=== PATIENT | male | born 1945 ===

== ENCOUNTER 2024-01-11 13:57 | Observation (INO) | payer BC ==
[2024-01-11] VITALS (11 sets, daily range): BP systolic 158–216; BP diastolic 46–108; PULSE 65–78; TEMP 97.9
[~2024-01-11] VITALS: Ht 177.8 cm; Wt 102.4 kg
[~2024-01-11 13:57] MED LIST: LR 1,000 ML IV SCH
[2024-01-11] MEDS ORDERED: LASIX 20MG TABL20 MG PO (15:44)
[2024-01-11] MEDS ORDERED: LIPITOR 40MG TA40 MG PO (15:46)
[2024-01-11] MEDS ORDERED: COREG 6.256.25 MG/TA PO (15:47)
[2024-01-11] MEDS ORDERED: FLOMAX 0.40.4 MG/CAP PO (15:48)
[2024-01-11] MEDS ORDERED: COZAAR100 MG PO (15:49)
[2024-01-11] MEDS ORDERED: ASPIRIN 81M81 MG/TA2 PO (15:52)
[2024-01-11] MEDS ORDERED: THE MEDICINE S200 M2 PO (15:53)
[2024-01-11] MEDS ORDERED: TYLENOL PM EXTR1 TA1 PO (15:54)
[2024-01-11] MEDS ORDERED: NIACIN 64 MG-501 TA1 PO (15:54)
[2024-01-11] MEDS ORDERED: PROBIOTIC BLEN1 EACH PO (15:56)
[2024-01-11] MEDS ORDERED: TRIAMCINOLONE A15 GM TP (15:58)
[2024-01-11] MEDS ORDERED: CIPRO 500MG TA500 MG PO (16:02)
--- NOTE | 2024-01-11 16:20 | NUR ---
Stone PATRICK CRNA NOTIFIED OF BLOOD PRESSURE. LABETOLOL 10 MG ORDERED ONE TIME.
[2024-01-11] MEDS ORDERED: Midazolam 2 MG/2 ML VIAL ONE (16:57)
[2024-01-11] MEDS ORDERED: Lidocaine PF 2% (20 MG/ML) 5 ML VIAL ONE (16:57)
--- NOTE | 2024-01-11 17:13 | NUR ---
1702-CALL TO Stone PATRICK CRNA AND NOTIFIED OF BLOOD PRESSURE. ORDERS RECEIVED. HYDRALAZINE 10 MG IV NOW. 1710-HYDRALAZINE 10 MG IV GIVEN AT THIS TIME.
[2024-01-11] MEDS ORDERED: hydrALAZINE 20 MG/ML 1 ML VIAL IV ONE (17:15)
[2024-01-11] MEDS ORDERED: Triamcinolone 0.1% Cream 15 GM TUBE TP PRN (17:30)
[2024-01-11] MEDS ORDERED: fentaNYL 50 MCG/ML 2 ML VIAL IV PRN (17:30)
[2024-01-11] MEDS ORDERED: Morphine 4 MG/ML VIAL IV PRN ×2 (17:30)
[2024-01-11] MEDS ORDERED: Acetaminophen 325 MG TAB PO PRN (17:30)
[2024-01-11] MEDS ORDERED: Magnes Hydrox (MOM) 80 MG/ML 30 ML CUP PO PRN (17:30)
[2024-01-11] MEDS ORDERED: NS Irrig Soln 3000 ML SOLN IR PRN (17:30)
[2024-01-11] MEDS ORDERED: Hyoscyamine 0.125 MG Sublingual TAB SL PRN (17:30)
[2024-01-11] MEDS ORDERED: droPERidol 2.5 MG/ML 2 ML VIAL IV PRN (17:30)
[2024-01-11] MEDS ORDERED: HYDROmorphone 2 MG/1 ML VIAL IV PRN (17:30)
[2024-01-11] MEDS ORDERED: 1/2 NS & 20 mEq KCl 1,000 ML IV SCH (17:30)
[2024-01-11] MEDS ORDERED: hydrALAZINE 20 MG/ML 1 ML VIAL IV PRN ×2 (17:30→22:30)
[2024-01-11] MEDS ORDERED: Ondansetron 4 MG/2 ML VIAL IV PRN ×2 (17:30)
[2024-01-11] MEDS ORDERED: Meperidine 50 MG/ML 1 ML VIAL IV PRN (17:30)
[2024-01-11] MEDS ORDERED: Lidocaine 2% (20 MG/ML) 20 ML UROJET UR ONE (18:17)
--- NOTE | 2024-01-11 20:07 | NUR ---
Called Dr. Qiu and made him aware that patient's BP is high, received an order for hospitalist consult and he's okay to resume the coreg tonight. Called Niranjan the [facility] and informed him about the consult.
[2024-01-11] MEDS ORDERED: Carvedilol 6.25 MG TAB PO SCH (20:20)
[2024-01-11] MEDS ORDERED: Docusate Sodium 100 MG CAP PO SCH (21:00)
[2024-01-11] MEDS ORDERED: Melatonin 3 MG TAB PO PRN (21:00)
[2024-01-11] MEDS ORDERED: Ciprofloxacin 500 MG TAB PO SCH (21:00)
[2024-01-11] MEDS ORDERED: Nystatin 100,000 Units/GM Ointment 15 GM TUBE TP SCH (21:00)
--- NOTE | 2024-01-11 21:06 | NUR ---
Patient arrived to the floor from PACU at 1900, family at bedside, with ongoing CBI at slow rate, with IV infusing well on right forearm, denies pain at this time, offered jello and he tolerated it, offered sandwich box thereafter and he tolerated it, denies N/V, denies further needs, call light and personal items within reach, on post-op vitals.
[2024-01-11 21:21] LABS: BASO # 0.1 K/mm3 (0.0-0.2); BASO % 0.9 % (0.0-2.0); EOS # 0.3 K/mm3 (0.0-0.7); EOS % 4.1 % (0.0-4.0); GRAN # 4.8 K/mm3 (1.4-6.5); GRAN % 60.2 % (42.2-75.2); HEMATOCRIT 39.2 % (42.0-52.0); HEMOGLOBIN 12.9 g/dl (13.5-18.0); LYMPH # 1.9 K/mm3 (1.2-3.4); LYMPH % 23.8 % (20.0-51.0); MEAN CELL VOLUME 95 fl (80.0-100.0); MEAN CORPUSCULAR HEMOGLOBIN 31 pg (27-31); MEAN CORPUSCULAR HGB CONC 33 g/dl (33.0-37.0); MONO # 0.9 K/mm3 (0.1-0.6); MONO % 10.8 % (1.7-9.3); PLATELET COUNT 188 K/mm3 (130-400); RED BLOOD COUNT 4.13 M/mm3 (4.20-5.60); REDCELL DISTRIBUTION WIDTH-CV 13.6 % (11.5-14.5)
[2024-01-11 21:43] LABS: ALBUMIN 3.5 gm/dL (3.4-4.8); BILIRUBIN,TOTAL 0.4 mg/dL (0.2-1.2); CALCIUM 9.7 mg/dL (8.4-10.2); CREATININE, serum 1.04 mg/dL (0.72-1.25); MAGNESIUM 2.1 mg/dL (1.6-2.6); POTASSIUM 4.2 mmol/L (3.5-4.5); TOTAL PROTEIN 7.5 gm/dL (6.2-8.1)
--- NOTE | 2024-01-11 22:16 | NUR ---
Called Niranjan, the PA and made him aware that patient BP is high, received an order for hydralazine.
[2024-01-12] VITALS (13 sets, daily range): BP systolic 139–190; BP diastolic 41–75; PULSE 71–85; TEMP 97.4–98.3
--- NOTE | 2024-01-12 04:00 | NUR ---
Patient reports "feels like my catheter is pulling", this nurse checked the catheter and noted scant amount of blood outside the catheter, on the chux and gown, applied new statlock and the drainage on the bag still yellow at that time. Adjusted the flow of the CBI from fast to moderate drip and light red to pinkish drainage came out, will monitor.
--- NOTE | 2024-01-12 06:05 | NUR ---
BP is 172/70, hydralazine given at this time, CBI running at moderate drip.
[2024-01-12] MEDS ORDERED: Carvedilol 6.25 MG TAB PO SCH (08:00)
[2024-01-12] MEDS ORDERED: Carvedilol 25 MG TAB PO SCH (08:45)
--- NOTE | 2024-01-12 08:45 | NUR ---
SHIFT ASSESSMENT COMPLETE. PATIENT UP TO CHAIR AWAITING BREAKFAST. ALL MORNING MEDS GIVEN PER ORDERS. PATIENT HAS NO COMPAINTS OR REQUEST THIS TIME. CALL LIGHT IN REACH.
[2024-01-12] MEDS ORDERED: Losartan 50 MG TAB PO SCH (09:00)
[2024-01-12] MEDS ORDERED: Sennosides/Docusate 8.6-50 MG TAB PO SCH (09:00)
[2024-01-12] MEDS ORDERED: Furosemide 20 MG TAB PO SCH (09:00)
[2024-01-12] MEDS ORDERED: Carvedilol 6.25 MG TAB PO ONE (09:30)
--- NOTE | 2024-01-12 12:19 | NUR ---
Data: Thread Spooler offered visit to Patient twice during Thread Spooler rounds. First attempt, Radio Repairer was outside room preparing to visit. Thread Spooler offered to return. Patient agreed. Second attempt, Patient was watching TV and Visitor was trying to nap on the window bench. Assessment: No Thread Spooler visit completed. Plan of Care: Chaplains will remain available as needed/requested while Patient is admitted to this hospital.
--- NOTE | 2024-01-12 12:52 | NUR ---
SW met with patient to complete intake, patient's was present. Patient confirmed that he resided in his home in [facility] with . Patient informed SW that his PCP is Dr. Alarcon and pharmacy of choice is [email or web address] for mail-in prescriptions, an also uses the [facility] pharmacy is [place]. Patient reports that he is independent with ADLs and only current DMEs is CPAP. Discharge plan: TBD
--- NOTE | 2024-01-12 13:43 | NUR ---
Data: Lead Athlete asked Drywaller to visit Patient and Family because they are making a decision about hospice. Daughter asked for prayers for wisdom in making decisions. Patient was in recliner with a cloth on her forehead.Patient was breathing loud enough for Drywaller to hear while standing back a couple of feet from the recliner. [facility] in [place] is praying for Patient. Telecommunications Facility Examiner is involved and has visited. Assessment: Patient seems exhausted. Daughter wants to make the best possible decision without feeling as though she has given up. Plan of Care: Patient needed a pillow for her arm, which Drywaller retrieved with some assistance from a AGILE BUSINESS ANALYST. Drywaller educated Daughter and Grandson of various types of hospices such as in-patient, in a facility, or living at home. Drywaller affirmed Daughter's idea of being as informed as possible and seeking wisdom through prayer. Drywaller prayed for wisdom, comfort, and peace about their decision. Daughter wants to continue gathering information and will share with other Family members who were not present during this conversation as they had gone to lunch.
--- NOTE | 2024-01-12 16:16 | NUR ---
CBI RUNNING CLEAR, SLOWED DOWN RATE. PATIENT STATES NO PAIN OR DISCOMFORT AT THIS TIME.
[2024-01-12] MEDS ORDERED: amLODIPine 10 MG TAB PO SCH (17:37)
--- NOTE | 2024-01-12 17:54 | NUR ---
BP 190/75 CONTACTED HOSPITALIST, AMLOADAPINE ORDERED AND ADMINISTERED. WILL CONTINUE TO MONITOR.
[2024-01-13] MEDS ORDERED: hydrALAZINE 20 MG/ML 1 ML VIAL IV ONE (03:30)
[2024-01-13 03:41] VITALS: BP 194/71; PULSE 81; TEMP 97.5
[2024-01-13 07:25] VITALS: BP 155/68; PULSE 85; TEMP 98.2
[2024-01-13 09:00] VITALS: BP_SYST 155
--- NOTE | 2024-01-13 09:56 | NUR ---
PATIENT ALERT AND ORIENTED X4. VSS. PATIENT HERE FOR TURP. 3 WAY HUTSON TO TRACTION, CBI RUNNING SLOW WITH LIGHT PINK OUTPUT, SMALL INTERMITTENT CLOTS WITH MOVEMENT. PATIENT DENIES ANY PAIN. IV TO LEFT FA INT, FLUSHES WELL. NO FURTHER NEEDS. CALL LIGHT IN REACH.
[2024-01-13 12:54] VITALS: BP_SYST 155
[2024-01-13] MEDS ORDERED: COREG 25MG25 MG/TAB PO (13:51)
--- NOTE | 2024-01-13 15:06 | NUR ---
DISCHARGE INSTRUCTIONS PROVIDED. PATIENT EDUCATION GIVEN. IV DC'D. PATIENT FINISHED 6 CUP REGIMEN. FOLLOW UP APPOINTMENT DISCUSSED. MEDICATIONS REVIEWED. PATIENT AND FAMILY DENY ANY QUESTIONS OR CONCERNS. PATIENT ESCORTED OUT VIA WHEELCHAIR.
== END 2024-01-13 15:07 | disposition home or self-care (01) ==
LOC: SDCO 13:57 → SURG 20:14
PROVIDERS: Physician Assistant; ADMIT Urology
DX: N40.1 Benign prostatic hyperplasia with lower urinary tract symptoms (principal); R39.12 Poor urinary stream; R35.1 Nocturia; R39.14 Feeling of incomplete bladder emptying; R33.8 Other retention of urine; N41.0 Acute prostatitis; N41.1 Chronic prostatitis; I10 Essential (primary) hypertension; E11.9 Type 2 diabetes mellitus without complications; E78.5 Hyperlipidemia, unspecified; G47.33 Obstructive sleep apnea (adult) (pediatric); Z79.84 Long term (current) use of oral hypoglycemic drugs; Z87.891 Personal history of nicotine dependence; Z85.820 Personal history of malignant melanoma of skin; Z79.899 Other long term (current) drug therapy
CPT/HCPCS: G0378; J0360; J0690; J1920; J2250; J2704; J3480; J7120